=== PATIENT | female | born 1955 | race Caucasian/White ===

== ENCOUNTER 2017-10-30 08:04 | Emergency (ER) | payer OTHER ==
[~2017-10-30] VITALS: Ht 162.6 cm; Wt 103.0 kg
[~2017-10-30 08:04] MED LIST: ASPI81TA82 PO; CITA20TA4 PO; ESTR2MIS PO; GABA100C4 PO; HYDR12.56 PO; METR-1 PO; MULT-7 PO; PRAV20TA67 PO; PRIL20CA PO; PRIN5TAB PO; TOPR25TA2 PO
[2017-10-30 08:10] VITALS: BP 122/71; PULSE 77; RESP 20; TEMP 97.5; O2SAT 97
[2017-10-30 08:23] VITALS: BP 129/76; PULSE 80; RESP 18; O2SAT 98
[2017-10-30] MEDS ORDERED: MULTTAB67 PO (08:31)
[2017-10-30] MEDS ORDERED: HYDR12.57 PO (08:31)
[2017-10-30] MEDS ORDERED: CALC1TAB87 PO (08:31)
[2017-10-30] MEDS ORDERED: LISI-519 PO (08:31)
[2017-10-30] MEDS ORDERED: MILK300C (08:31)
[2017-10-30] MEDS ORDERED: GABA100C4 PO (08:31)
[2017-10-30] MEDS ORDERED: COLA100C5 PO (08:31)
[2017-10-30] MEDS ORDERED: OMEP20TA93 PO (08:31)
[2017-10-30] MEDS ORDERED: LEVO75TA3 PO (08:31)
[2017-10-30] MEDS ORDERED: CHOL5000 PO (08:31)
[2017-10-30] MEDS ORDERED: CARV12.5 PO (08:31)
[2017-10-30] MEDS ORDERED: ROSU5 PO (08:31)
[2017-10-30] MEDS ORDERED: LORA0.5T PO (08:31)
[2017-10-30] MEDS ORDERED: ASPI81CH6 CHEW (08:31)
--- NOTE | 2017-10-30 08:42 | PD ---
HPI Chief Complaint: Musculoskeletal Complaint Time Seen by Provider: 08:38 Travel History International Travel<30 days: No Contact w/Intl Traveler<30days: No Traveled to known affect area: No History of Present Illness HPI 62-year-old female patient with history of hypertension, cardiac dysrhythmia status post defibrillator placement, presents to the ER today because she has had 1 week history of right-sided shoulder pains as now spreading to the rest of her chest. She states is currently an 8 out of 10. She states it hurts with movement of her right arm. She does not remember any injuries, just started on its own. She thinks that it is a muscle pain and came in here because she could not stand anymore. She denies any coughing, fevers, or any other issues. Modifying Factors: Worse with movement Associated Signs & Symptoms: Right shoulder pain radiating up her neck and her chest Risk Factors: Elderly, cardiac history PFSH Past Medical History Arthritis: Yes (oa, ddd) Cardiac Catheterization: Yes Congestive Heart Failure: Yes Cirrhosis: Yes Diminished Hearing: Yes Fibromyalgia: Yes Medical other: Yes (FATTY LIVER) Tetanus Vaccination: Unknown Influenza Vaccination: Yes : 0 Para: 1 : 1 Past Surgical History Abdominal Surgery: Yes (Hernia repair, ruptured bowl) Pacemaker: Yes (Defib) Other Surgery: Yes (Ingrown toe nails bilat) Social History Alcohol Use: Yes (x1 4 week) Tobacco Use: No Substance Use: No Allergies-Medications (Allergen,Severity, Reaction): Coded Allergies: penicillin G (Unverified Allergy, Severe, Rash, 10/30/17) moxifloxacin (Unverified Allergy, Mild, Joint Pain, 10/30/17) codeine (Unverified Allergy, Unknown, Nausea/Vomiting, 10/30/17) pantoprazole (Unverified Allergy, Unknown, Rash, 10/30/17) Uncoded Allergies: ivp dye (Allergy, Intermediate, red itchy, 10/30/17) Reported Meds & Prescriptions Reported Meds & Active Scripts Active Reported Milk Thistle 150 Mg Cap Colace (Docusate Sodium) 100 Mg Capsule 100 Mg PO DAILY Vitamin D3 (Cholecalciferol) 5,000 Unit Cap 5,000 Units PO DAILY Calcium 600 with Vitamin D (Calcium Carbonate-Cholecalciferol) 600-400 mg-Unit Tab 1 Tab PO DAILY Multiple Vitamin 1 Tab 1 Tab PO DAILY Hydrochlorothiazide 12.5 Mg Cap 12.5 Mg PO DAILY Levothyroxine (Levothyroxine Sodium) 75 Mcg Tab 75 Mcg PO DAILY Lisinopril 5 Mg Tab 5 Mg PO DAILY Coreg (Carvedilol) 12.5 Mg Tab 12.5 Mg PO BID Omeprazole 20 Mg Tab 20 Mg PO DAILY Lorazepam 0.5 Mg Tab 0.5 Mg PO Q6H PRN Crestor (Rosuvastatin Calcium) 5 Mg Tab 5 Mg PO HS Gabapentin 100 Mg Cap 200 Mg PO HS Aspirin Low Dose (Aspirin) 81 Mg Chew 81 Mg CHEW DAILY Review of Systems Except as stated in HPI: all other systems reviewed are Neg Physical Exam Narrative GENERAL: Well-developed elderly female patient currently in mild distress. Awake and oriented 3. Appears anxious. SKIN: Focused skin assessment warm/dry. No obvious rashes. HEAD: Atraumatic. Normocephalic. EYES: Pupils equal and round. No scleral icterus. No injection or drainage. ENT: No nasal bleeding or discharge. Mucous membranes pink and moist. NECK: Trachea midline. No JVD. Supple. CARDIOVASCULAR: Regular rate and rhythm. No murmur appreciated. RESPIRATORY: No accessory muscle use. Clear to auscultation. Breath sounds equal bilaterally. GASTROINTESTINAL: Abdomen soft, non-tender, nondistended. Hepatic and splenic margins not palpable. MUSCULOSKELETAL: No obvious deformities. No clubbing. No cyanosis. No edema. Mildly tender to palpation of the right shoulder area, generalized, no point tenderness. NEUROLOGICAL: Awake and alert. No obvious cranial nerve deficits. Motor grossly within normal limits. Normal speech. PSYCHIATRIC: Anxious mood and affect; insight and judgment normal. Data Data Last Documented VS Vital Signs Date Time Temp Pulse Resp B/P (MAP) Pulse Ox O2 Delivery O2 Flow Rate FiO2 10/30/17 09:02 80 18 129/76 (93) 98 Room Air 134/88 (103) 10/30/17 08:10 97.5 Orders Orders Electrocardiogram (10/30/17 08:38) Basic Metabolic Panel (Bmp) (10/30/17 08:38) Ckmb (Isoenzyme) Profile (10/30/17 08:38) Complete Blood Count With Diff (10/30/17 08:38) Magnesium (Mg) (10/30/17 08:38) Prothrombin Time / Inr (Pt) (10/30/17 08:38) Act Partial Throm Time (Ptt) (10/30/17 08:38) Troponin I (10/30/17 08:38) Ecg Monitoring (10/30/17 08:38) Bilateral Bp Monitoring (10/30/17 08:38) Iv Access Insert/Monitor (10/30/17 08:38) Oximetry (10/30/17 08:38) Oxygen Administration (10/30/17 08:38) Morphine Inj (Morphine Inj) (10/30/17 08:45) Sodium Chloride 0.9% Flush (Ns Flush) (10/30/17 08:45) Sodium Chlorid 0.9% 500 Ml Inj (Ns 500 M (10/30/17 08:45) Chest, Pa & Lat (10/30/17 08:38) Ondansetron Inj (Zofran Inj) (10/30/17 08:45) Shoulder, Complete (>2vws) (10/30/17 08:38) Labs Laboratory Tests Test 10/30/17 08:50 White Blood Count 7.0 TH/MM3 Red Blood Count 4.60 MIL/MM3 Hemoglobin 13.9 GM/DL Hematocrit 40.2 % Mean Corpuscular Volume 87.4 FL Mean Corpuscular Hemoglobin 30.2 PG Mean Corpuscular Hemoglobin Concent 34.6 % Red Cell Distribution Width 13.6 % Platelet Count 91 TH/MM3 Mean Platelet Volume 9.6 FL Neutrophils (%) (Auto) 66.3 % Lymphocytes (%) (Auto) 26.6 % Monocytes (%) (Auto) 3.0 % Eosinophils (%) (Auto) 3.6 % Basophils (%) (Auto) 0.5 % Neutrophils # (Auto) 4.6 TH/MM3 Lymphocytes # (Auto) 1.9 TH/MM3 Monocytes # (Auto) 0.2 TH/MM3 Eosinophils # (Auto) 0.2 TH/MM3 Basophils # (Auto) 0.0 TH/MM3 CBC Comment AUTO DIFF Differential Comment AUTO DIFF CONFIRMED Platelet Estimate LOW Platelet Morphology Comment NORMAL Prothrombin Time 10.0 SEC Prothromb Time International Ratio 1.0 RATIO Activated Partial Thromboplast Time 24.3 SEC Blood Urea Nitrogen 12 MG/DL Creatinine 0.93 MG/DL Random Glucose 131 MG/DL Calcium Level 9.5 MG/DL Magnesium Level 2.0 MG/DL Sodium Level 141 MEQ/L Potassium Level 3.4 MEQ/L Chloride Level 101 MEQ/L Carbon Dioxide Level 29.8 MEQ/L Anion Gap 10 MEQ/L Estimat Glomerular Filtration Rate 61 ML/MIN Total Creatine Kinase 89 U/L Troponin I LESS THAN 0.02 NG/ML MDM Medical Decision Making Medical Screen Exam Complete: Yes Emergency Medical Condition: Yes Medical Record Reviewed: Yes Interpretation(s) Laboratory Tests Test 10/30/17 08:50 Platelet Count 91 TH/MM3 (150-450) Platelet Estimate LOW (NORMAL) Random Glucose 131 MG/DL (74-106) Potassium Level 3.4 MEQ/L (3.5-5.1) Estimat Glomerular Filtration Rate 61 ML/MIN (>89) Troponin I LESS THAN 0.02 NG/ML Last 24 hours Impressions Shoulder X-Ray 10/30/17837 Signed Impressions: Service Date/Time: Monday, October 30, 2017 08:53 - CONCLUSION: ADC degenerative changes otherwise negative. Doug Prather MD FACR Chest X-Ray 10/30/17837 Signed Impressions: Service Date/Time: Monday, October 30, 2017 08:51 - CONCLUSION: 1. No acute cardiopulmonary findings. Romario Prather MD Differential Diagnosis Muscle spasms versus arthritis versus dysrhythmias versus ACS Narrative Course Chest x-ray did not show any signs of acute processes. Right shoulder did show some ADC joint arthritis. At this point, I suspect it is her arthritis is causing the pain. It is reproducible with arm movements. However, cardiac enzymes was fairly unremarkable and considering her cardiac history, I have talked to her regarding chest pain center admission. Patient tells me that Dr. Clemons, her formulation technician had just done a stress test on her earlier in the year and it was fine, she has had catheterizations and is always been clear. At this point, she states that she does not want to stay and does not think is her heart. I will release her with close follow-up to primary care physician, formulation technician, and give her pain control. Return for worsening in symptoms as necessary. The plan has been discussed with her and she states understanding. Diagnosis Primary Impression: Right shoulder pain Med/Other Pt SpecificInfo: Prescription(s) given Scripts Tramadol (Tramadol) 50 Mg Tab 50 MG PO Q6H Y for PAIN, #15 TAB 0 Refills Prov: Shannon Artis MD 10/30/17 Disposition: 01 DISCHARGE HOME Condition: Stable Shannon Artis MD October 30, 2017 08:42
[2017-10-30] MEDS ORDERED: SODIUM CHLORID 0.9% 500 ML INJ 500 ML IV ONE (08:45)
[2017-10-30] MEDS ORDERED: MORPHINE SULFATE 4 MG/ML INJ IV PUSH ONE (08:45)
[2017-10-30] MEDS ORDERED: SODIUM CHLORIDE 0.9% FLUSH 10 ML FLUSH IVF PRN (08:45)
[2017-10-30] MEDS ORDERED: ONDANSETRON HCL 4 MG/2 ML VIAL IV PUSH ONE (08:45)
[2017-10-30 08:48] VITALS: BP 129/76; PULSE 80; RESP 18; O2SAT 98
[2017-10-30 09:02] VITALS: BP_SYST 129; BP_SYST 134; BP_DIAS 76; BP_DIAS 88; PULSE 80; RESP 18; O2SAT 98
--- NOTE | 2017-10-30 09:03 | RADRPT ---
EXAM DATE/TIME: 10/30/2017 08:51 [facility] COMPARISON: No previous studies available for comparison. INDICATIONS : Complains of right shoulder and chest pain. MEDICAL HISTORY : Congestive heart failure. SURGICAL HISTORY : Pacemaker. ENCOUNTER: Initial ACUITY: 1 week PAIN SCORE: 10/10 LOCATION: Right chest FINDINGS: The heart is normal in size. The lungs are clear. The mediastinal contours within normal limits. Note is made of a transvenous pacer. The visualized bony structures are grossly intact. CONCLUSION: 1. No acute cardiopulmonary findings. Romario Prather MD on October 30, 2017 at 9:00 Board Certified Radiologist. This report was verified electronically.
--- NOTE | 2017-10-30 09:12 | RADRPT ---
EXAM DATE/TIME: 10/30/2017 08:53 [facility] COMPARISON: No previous studies available for comparison. INDICATIONS : Right shoulder pain. MEDICAL HISTORY : Congestive heart failure. SURGICAL HISTORY : Pacemaker. ENCOUNTER: Initial ACUITY: 1 week PAIN SCORE: 10/10 LOCATION: Right shoulder FINDINGS: Multiple view examination of the right shoulder demonstrates no evidence of fracture or dislocation. Mild degenerative changes AC joint. Glenoid intact. Lung apex clear. CONCLUSION: ADC degenerative changes otherwise negative. Doug Prather MD FACR on October 30, 2017 at 9:09 Board Certified Radiologist. This report was verified electronically.
[2017-10-30 09:25] LABS: AUTOMATED NEUTROPHIL # 4.6 TH/MM3 (1.8-7.7); BASOPHIL % 0.5 % (0.0-2.0); EOSINOPHIL # 0.2 TH/MM3 (0-0.4); EOSINOPHIL % 3.6 % (0.0-4.0); HEMATOCRIT 40.2 % (35.0-46.0); HEMOGLOBIN 13.9 GM/DL (11.6-15.3); LYMPH % 26.6 % (9.0-44.0); LYMPHOCYTE # 1.9 TH/MM3 (1.0-4.8); MEAN CELL VOLUME 87.4 FL (80.0-100.0); MEAN CORPUSCULAR HEMOGLOBIN 30.2 PG (27.0-34.0); MEAN CORPUSCULAR HGB CONC 34.6 % (32.0-36.0); MEAN PLATELET VOLUME 9.6 FL (7.0-11.0); MONOCYTE # 0.2 TH/MM3 (0-0.9); NEUT % 66.3 % (16.0-70.0); PLATELET COUNT 91 TH/MM3 (150-450); RED CELL DISTRIBUTION WIDTH 13.6 % (11.6-17.2)
[2017-10-30 09:38] LABS: BICARBONATE 29.8 MEQ/L (21.0-32.0); BLOOD UREA NITROGEN 12 MG/DL (7-18); CALCIUM 9.5 MG/DL (8.5-10.1); CHLORIDE 101 MEQ/L (98-107); CREATININE 0.93 MG/DL (0.50-1.00); GLOMERULAR FILTRATION RATE 61 ML/MIN (>89); GLUCOSE,RANDOM 131 MG/DL (74-106); SODIUM (NA) 141 MEQ/L (136-145)
[2017-10-30 09:42] LABS: TROPONIN I LESS THAN 0.02 NG/ML (0.02-0.05)
[2017-10-30] MEDS ORDERED: TRAM50TA PO (10:29)
--- NOTE | 2017-10-30 16:56 | EKG ---
Date Performed: 10/30/2017 Time Performed: 08:20:53 PTAGE: 62 years EKG: Sinus rhythm NORMAL ECG NO PREVIOUS TRACING DOCTOR: Kevin Sosa Interpretating Date/Time 10/30/2017 16:26:12
== END 2017-10-30 11:06 | disposition home or self-care (01) ==
LOC: NEPC 08:04
DX: M25.511 Pain in right shoulder (principal); I10 Essential (primary) hypertension; I49.9 Cardiac arrhythmia, unspecified; M19.90 Unspecified osteoarthritis, unspecified site; I50.9 Heart failure, unspecified; K74.60 Unspecified cirrhosis of liver; M79.7 Fibromyalgia; K76.0 Fatty (change of) liver, not elsewhere classified; Z79.82 Long term (current) use of aspirin
CPT/HCPCS: 71046; 73030; 80048; 82550; 83735; 84484; 85025; 85610; 85730; 93005; 96361; 96374; 96375; 99285; J2270; J2405; J7040

== ENCOUNTER 2018-01-15 12:48 | Inpatient (IN) ==
[2018-01-15 15:14] LABS: Hematocrit 31.4 % (35.0-46.0); Hemoglobin 10.8 gm/dL (11.6-15.3); Mean Corpuscular HGB Conc 34.4 % (32.0-36.0); Mean Corpuscular Hemoglobin 30.6 pg (27.0-34.0); Mean Platelet Volume 8.8 fL (7.0-11.0); Red Blood Count 3.53 mil/mm3 (4.00-5.30); Red Cell Distribution Width 15.7 % (11.6-17.2); White Blood Count 9.6 th/mm3 (4.0-11.0)
[2018-01-15 15:37] LABS: Alanine Aminotransferase 81 U/L (10-53); Albumin 3.6 g/dL (3.4-5.0); Anion Gap 12 meq/L (5-15); Aspartate Aminotransferase 68 U/L (15-37); Blood Urea Nitrogen 11 mg/dL (7-18); Calcium 9.6 mg/dL (8.5-10.1); Carbon Dioxide 23.9 meq/L (21.0-32.0); Chloride 104 meq/L (98-107); Glomerular Filtration Rate 53 mL/min (>89); Glucose,Random 165 mg/dL (74-106); Lactate Dehydrogenase 423 U/L (84-246); Potassium 3.5 meq/L (3.5-5.1); Sodium 140 meq/L (136-145); Uric Acid 9.4 mg/dl (2.6-6.0)
[2018-01-15 15:38] LABS: Alkaline Phosphatase 73 U/L (45-117); Total Protein 7.4 g/dL (6.4-8.2)
[2018-01-15] MEDS ORDERED: Temazepam 15 MG Capsule PO PRN (16:15)
--- NOTE | 2018-01-15 16:19 | ED ---
HPI General Chief complaint: Recheck/Abnormal Lab/Rx Stated complaint: dr sent Time Seen by Provider: 01/15/18 14:10 History of Present Illness HPI narrative: This is a 62-year-old female with a history of chronic idiopathic thrombocytopenia, who is been worked up for leukemia by her oncologist/lump receiver Dr. Kvng Lazcano. Patient apparently has been having serial CBCs which have shown a steady decline in her platelet count. Dr. Kvng Lazcano saw her today and sent her here for admission because her platelets had dropped to 21,000. The patient reports that he was considering both a LL versus CLL. She denies any fevers, chills. She does report weakness. There were no other complaints at the time of my examination. Related Data Allergies Allergy/AdvReac Type Severity Reaction Status Date / Time penicillin G Allergy Severe Rash Unverified 10/30/17 08:10 moxifloxacin Allergy Mild Joint Pain Unverified 10/30/17 08:10 codeine Allergy Unknown Nausea/Vomi Unverified 10/30/17 08:10 ting pantoprazole Allergy Unknown Rash Unverified 10/30/17 08:10 ivp dye Allergy Intermediate red itchy Uncoded 10/30/17 08:10 Review of Systems Except as stated in HPI: all other systems reviewed are negative Constitutional Denies body ache(s), Denies chills and Denies fever(s) Eyes Denies blurry vision and Denies diplopia ENT Denies bleeding gums and Denies epistaxis Cardiovascular Denies chest pain and Denies chest pain at rest Respiratory Denies hemoptysis, Denies pain on inspiration and Reports other (Chronic shortness of breath) Gastrointestinal Denies hematochezia and Denies hematemesis Genitourinary Denies hematuria and Denies dysuria Musculoskeletal Reports system reviewed and no additional complaints, except as docu Integumentary/Breasts Reports system reviewed and no additional complaints, except as docu Neurologic Denies dizziness, Denies headache(s) and Reports weakness (Generalized) Endocrine Reports system reviewed and no additional complaints, except as docu Hematologic/Lymphatic Denies as per HPI, Denies easy bleeding and Denies lymphadenopathy PMFSH Medical History Medical History Cardiomyopathy (Acute) Chronic ITP (idiopathic thrombocytopenia) (Acute) Clostridium difficile infection (Acute) Degenerative disc disease (Acute) Fatty liver (Acute) Fibromyalgia (Acute) Ganglion cyst (Acute) Hiatal hernia (Acute) Hypertension (Acute) Ingrown toenail (Acute) Keratosis (Acute) Hastings's neuroma (Acute) Normal colonoscopy (Acute) Osteoarthritis (Acute) Sickle cell trait (Acute) TMJ arthritis (Acute) Surgical History Surgical History AICD (automatic cardioverter/defibrillator) present (Acute) History of cardiac cath (Acute) S/p bilateral blepharoplasty (Acute) Social History Social History Substance History: No History of Abuse Second Hand Smoke Exposure: No Smoking Status: Former smoker How Often Do You Have a Drink Containing Alcohol: Never Recent Travel in [facility] within the Last 8 Weeks: No Recent Out of Country Travel within the Last 8 Weeks: No Immunization History Tetanus Immunization: >5 Years Hx Influenza Vaccine This Season: Yes Exam Narrative Exam Narrative: GENERAL: Well-developed well-nourished female in no acute respiratory distress. SKIN: Focused skin assessment warm/dry. HEAD: Atraumatic. Normocephalic. EYES: No scleral icterus. No injection or drainage. ENT: No nasal bleeding or discharge. Mucous membranes pink and moist. NECK: Trachea midline. Supple. CARDIOVASCULAR: Regular rate and rhythm. No murmur appreciated. RESPIRATORY: No accessory muscle use. Clear to auscultation. Breath sounds equal bilaterally. GASTROINTESTINAL: Abdomen soft, non-tender, nondistended. MUSCULOSKELETAL: No obvious deformities. No clubbing. No cyanosis. No edema. NEUROLOGICAL: Awake and alert. No obvious cranial nerve deficits. Motor grossly within normal limits. Normal speech. PSYCHIATRIC: Appropriate mood and affect; insight and judgment normal. Course Initial Documented Vital Signs Temperature 98.9 F 01/15/18 12:54 Pulse Rate 89 01/15/18 12:54 Respiratory Rate 16 01/15/18 12:54 Blood Pressure 122/74 01/15/18 12:54 Pulse Oximetry 99 01/15/18 12:54 Last Documented Vital Signs Temperature 98.9 F 01/15/18 12:54 Pulse Rate 90 01/15/18 15:10 Respiratory Rate 16 01/15/18 15:10 Blood Pressure 137/74 01/15/18 15:10 Pulse Oximetry 97 01/15/18 15:10 Medical Decision Making MDM Narrative Medical decision making narrative: This is a 62-year-old female sent here by her lump receiver for admission for probable ALL versus CLL. I spoke with Dr. Kvng Lazcano on the phone and he reports he received confirmation that it is a LL. He requested I order a CBC and CMP including LDH and uric acid. This is been ordered. Please will be admitted to the medicine service. Case was [facility]. Differential Diagnosis Differential Diagnosis: ALL versus CLL versus pancytopenia versus metabolic derangement. Lab Data Result diagrams: 01/15/18 15:00 01/15/18 15:00 Lab Results 01/15/18 Range/Units 15:00 Sodium 140 (136-145) meq/L Potassium 3.5 (3.5-5.1) meq/L Chloride 104 (98-107) meq/L Carbon Dioxide 23.9 (21.0-32.0) meq/L Anion Gap 12 (5-15) meq/L BUN 11 (7-18) mg/dL Creatinine 1.05 H (0.50-1.00) mg/dL Estimated GFR 53 L (>89) mL/min Random Glucose 165 H (74-106) mg/dL Uric Acid 9.4 H (2.6-6.0) mg/dl Calcium 9.6 (8.5-10.1) mg/dL Total Bilirubin 1.4 H (0.2-1.0) mg/dL AST 68 H (15-37) U/L ALT 81 H (10-53) U/L Alkaline Phosphatase 73 (45-117) U/L Lactate Dehydrogenase 423 H (84-246) U/L Total Protein 7.4 (6.4-8.2) g/dL Albumin 3.6 (3.4-5.0) g/dL Discharge Plan Discharge Disposition Patient Disposition: 30 Still Patient Discharge Details Diagnosis: ALL (acute lymphocytic leukemia), Pulmonary embolus Physicians Team ED Provider: Dirk Lam Primary Care Provider: Primary Care Ginna Menchaca Attending Provider: Amaury Oropeza Discharge Interventions Interventions: Vital Signs Last Done: 01/15/18 15:10 Status ED Status: Admitted Patient
[2018-01-15 16:29] LABS: Platelet Count 17 th/mm3 (150-450)
[2018-01-15 17:20] LABS: Eosinophils 1 % (0-4); Lymphocytes 58 % (9-44); Metamyelocytes 3 % (0-1); Monocytes 3 % (0-8); Myelocytes 1 % (0-0); Tallied Nucleated RBC 2 (0-0)
[2018-01-15 17:21] LABS: Tear Drop Cells 1+
[2018-01-15 17:22] LABS: Platelet Estimate Rare (Normal); Platelet Morphology Normal (Normal)
--- NOTE | 2018-01-15 17:28 | P.HPIM ---
History of Present Illness Primary Care Physician: No Primary Care Physician Chief Complaint: Abnormal results History of Present Illness: The patient is a 62-year-old female with past medical history of ITP and CHF who is presenting to the hospital upon request of her oncologist. The patient states that she has been following with Dr. Lazcano and she saw him in the office today and she recommended that she come to the hospital for further evaluation and treatment. The patient says that recently she has been tired, short of breath and has had decreased appetite. She believes she might of had some weight loss but nothing significant. She says lately when she eats the food goes right through her and she has diarrhea. She denies any fevers, she denies any edema. She denies any chest pain. She says on November 25 she had chest pain and went to the hospital and was found to have blood clots in her lungs. She says they have been found her to have abnormal blood counts and was not started on anticoagulation because she was told her blood was thin enough and her body would take care of the blood clots. The patient says she was currently being worked up between a chronic and acute type of cancer. Inpatient Certification: I certify that the inpatient services were ordered in accordance with Medicare regulations governing the order. This includes certification that hospital inpatient services are reasonable and necessary and in the case of services not specified as inpatient-only under 42 CFR 419.22(n), that they are appropriately provided as inpatient services in accordance to with the 2-midnight benchmark under 43 CFR 412.3(e) Estimated Total Length of Stay (Days): 2 Plans for Post Hospital Care: Not yet determined Review of Systems All other systems reviewed negative except as stated in HPI [facility] - History History Provided By: Patient, Significant Other - Medical History Medical History: Medical History (Last Updated 01/15/18 @ 17:25 by Amaury Oropeza DO) CHF (congestive heart failure) Cardiomyopathy Chronic ITP (idiopathic thrombocytopenia) Clostridium difficile infection Degenerative disc disease Fatty liver Fibromyalgia Ganglion cyst Hiatal hernia Hypertension Ingrown toenail Keratosis Hastings's neuroma Normal colonoscopy Osteoarthritis Sickle cell trait TMJ arthritis - Surgical History Surgical History: Surgical History (Last Updated 01/15/18 @ 15:22 by Georgiana Sorensen) AICD (automatic cardioverter/defibrillator) present History of cardiac cath S/p bilateral blepharoplasty - Tobacco History Second Hand Smoke Exposure: No Tobacco Use In Past 30 Days: No Smoking Status: Former smoker - Alcohol History How Often Do You Have a Drink Containing Alcohol: Never - Substance Use History Substance History: No History of Abuse - Substance Use Type Marijuana Frequency: monthly - Travel History Recent Travel in the [place] Within the Last 8 Weeks: No Recent Travel Out of the Country Within the Last 8 Weeks: No - Immunization History Tetanus Immunization: >5 Years Hx Influenza Vaccine This Season: Yes Medications and Allergies Active Medications: Active Medications Acetaminophen (Tylenol) 650 mg PO Q4H PRN PRN Reason: Temp > 100.4 Metoclopramide HCl (Reglan Inj) 5 mg IV.PUSH Q6HR PRN; Protocol PRN Reason: NAUSEA OR VOMITING Senna/Docusate Sodium (Nataliia-Colace) 1 tab PO BID LEXA Sodium Chloride (Ns Flush) 2 ml IV.FLUSH PRN PRN PRN Reason: FLUSH AFTER USING IV ACCESS Temazepam (Restoril) 15 mg PO HS PRN PRN Reason: INSOMNIA Allergies Allergy/AdvReac Type Severity Reaction Status Date / Time penicillin G Allergy Severe Rash Unverified 10/30/17 08:10 moxifloxacin Allergy Mild Joint Pain Unverified 10/30/17 08:10 codeine Allergy Unknown Nausea/Vomi Unverified 10/30/17 08:10 ting pantoprazole Allergy Unknown Rash Unverified 10/30/17 08:10 ivp dye Allergy Intermediate red itchy Uncoded 10/30/17 08:10 Home Medications Medication Instructions Recorded Confirmed Type aspirin 81 mg PO DAILY 01/15/18 01/15/18 History biotin 5,000 mcg SUBLINGUAL DAILY 01/15/18 01/15/18 History calcium carbonate 600 mg PO BID 01/15/18 01/15/18 History carvedilol [Coreg] 12.5 mg PO BID 01/15/18 01/15/18 History cholecalciferol (vitamin D3) 5,000 unit PO DAILY 01/15/18 01/15/18 History [Vitamin D3] cyclobenzaprine 10 mg PO TID PRN 01/15/18 01/15/18 History docusate sodium [Colace] 100 mg PO DAILY 01/15/18 01/15/18 History fluticasone [Flonase Allergy 1 spray INTRANASAL DAILY PRN 01/15/18 01/15/18 History Relief] gabapentin 100 mg PO DAILY 01/15/18 01/15/18 History hydrochlorothiazide 12.5 mg PO DAILY 01/15/18 01/15/18 History levothyroxine 25 mcg PO DAILY 01/15/18 01/15/18 History lisinopril 5 mg PO DAILY 01/15/18 01/15/18 History loratadine [Claritin] 10 mg PO DAILY 01/15/18 01/15/18 History lorazepam [Ativan] 0.5 mg PO DAILY PRN 01/15/18 01/15/18 History milk thistle 1,000 mg PO DAILY 01/15/18 01/15/18 History multivitamin 1 tab PO DAILY 01/15/18 01/15/18 History omeprazole 20 mg PO DAILY 01/15/18 01/15/18 History rosuvastatin [Crestor] 5 mg PO DAILY 01/15/18 01/15/18 History valacyclovir 1 gm PO DAILY PRN 01/15/18 01/15/18 History Exam Vital signs: Vital Signs 01/15/18 12:54 01/15/18 15:10 01/15/18 16:54 Temperature 98.9 F 98.7 F Pulse Rate 89 90 99 H Respiratory Rate 16 16 20 Blood Pressure 122/74 137/74 145/68 H Pulse Oximetry 99 97 99 Intake & Output 01/14/18 01/15/18 01/15/18 18:59 06:59 18:59 Weight 98.883 kg Narrative: GENERAL: Well-developed well-nourished female in no acute distress. SKIN: Focused skin assessment warm/dry. HEAD: Atraumatic. Normocephalic. EYES: No scleral icterus. No injection or drainage. ENT: No nasal bleeding or discharge. Mucous membranes pink and moist. NECK: Trachea midline. Supple. CARDIOVASCULAR: Regular rate and rhythm. No murmur appreciated. RESPIRATORY: No accessory muscle use. Clear to auscultation. Breath sounds equal bilaterally. GASTROINTESTINAL: Abdomen soft, non-tender, nondistended. MUSCULOSKELETAL: No obvious deformities. No clubbing. No cyanosis. No edema. NEUROLOGICAL: Awake and alert. No obvious cranial nerve deficits. Motor grossly within normal limits. Normal speech. PSYCHIATRIC: Appropriate mood and affect; insight and judgment normal. Results - Labs CBC & Chem 7: 01/15/18 15:00 01/15/18 15:00 Labs: Short CBC 01/15/18 Range/Units 15:00 WBC 9.6 (4.0-11.0) th/mm3 Hgb 10.8 L (11.6-15.3) gm/dL Hct 31.4 L (35.0-46.0) % Plt Count 17 L* (150-450) th/mm3 BMP 01/15/18 15:00 Sodium 140 Potassium 3.5 Chloride 104 Carbon Dioxide 23.9 BUN 11 Creatinine 1.05 H Calcium 9.6 Liver Function 01/15/18 Range/Units 15:00 Total Bilirubin 1.4 H (0.2-1.0) mg/dL AST 68 H (15-37) U/L ALT 81 H (10-53) U/L Alkaline Phosphatase 73 (45-117) U/L Albumin 3.6 (3.4-5.0) g/dL Caprini VTE Risk Assessment Caprini VTE Risk Assessment: Moderate/High Risk (score >= 2) Caprini Risk Assessment Model: Point Value = 1 Point Value = 2 Point Value = 3 Point Value = 5 Age 41-60 Minor surgery BMI > 25 kg/m2 Swollen legs Varicose veins or History of unexplained or recurrent spontaneous Oral contraceptives or hormone replacement Sepsis (< 1 month) Serious lung disease, including pneumonia (< 1 month) Abnormal pulmonary function Acute myocardial infarction Congestive heart failure (< 1 month) History of inflammatory bowel disease Medical patient at bed rest Age 61-74 Arthroscopic surgery Major open surgery (> 45 min) Laparoscopic surgery (> 45 min) Malignancy Confined to bed (> 72 hours) Immobilizing plaster cast Central venous access Age >= 75 History of VTE Family history of VTE Factor V Leiden Prothrombin [id number] Lupus anticoagulant Anticardiolipin antibodies Elevated serum homocysteine Heparin-induced thrombocytopenia Other congenital or acquired thrombophilia Stroke (< 1 month) Elective arthroplasty Hip, pelvis, or leg fracture Acute spinal cord injury (< 1 month) Prophylaxis Regimen: Total Risk Factor Score Risk Level Prophylaxis Regimen 0-1 Low Early ambulation 2 Moderate Order ONE of the following: *Sequential Compression Device (SCD) *Heparin 5000 units SQ BID 3-4 Higher Order ONE of the following medications: *Heparin 5000 units SQ TID *Enoxaparin/Lovenox 40 mg SQ daily (WT < 150 kg, CrCl > 30 mL/min) *Enoxaparin/Lovenox 30 mg SQ daily (WT < 150 kg, CrCl > 10-29 mL/min) *Enoxaparin/Lovenox 30 mg SQ BID (WT < 150 kg, CrCl > 30 mL/min) AND/OR *Sequential Compression Device (SCD) 5 or more Highest Order ONE of the following medications: *Heparin 5000 units SQ TID (Preferred with Epidurals) *Enoxaparin/Lovenox 40 mg SQ daily (WT < 150 kg, CrCl > 30 mL/min) *Enoxaparin/Lovenox 30 mg SQ daily (WT < 150 kg, CrCl > 10-29 mL/min) *Enoxaparin/Lovenox 30 mg SQ BID (WT < 150 kg, CrCl > 30 mL/min) AND *Sequential Compression Device (SCD) Assessment and Plan - Plan ALL/ ITP The pt was being worked up by Dr. 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 PLT count is currently 17. The pt also has a history of ITP. She has not had any recent bleeding. - oncology consult placed. - follow CBC and transfuse per oncology. - hold ASA. PE Recently diagnosed. Not on anticoagulation s/t thrombocytopenia. She denies any chest pain. - oxygen and nebs as needed. - incentive spirometry. Fatigue/ Dizziness S/t above. - PT if needed. Pt is ambulatory at this time. CHF Chronic, systolic. S/p AICD placement. Pt appears euvolemic. - resume home regimen. HTN Blood pressure relatively controlled at this time. - resume home regimen. - clonidine as needed. PPx: Contraindicated s/t thrombocytopenia H&P: Quality - VTE Deep Vein Thrombosis/Pulmonary Embolism Present on Admission: No
[2018-01-15] MEDS ORDERED: LORazepam 0.5 MG Tablet PO PRN (17:35)
[2018-01-15] MEDS ORDERED: Sodium Chlor 0.9% Inj 250 ML IV.SIG SCH (20:00)
--- NOTE | 2018-01-15 20:19 | MB ---
cc: Kvng Lazcano MD, Boon Y MD DATE: 01/15/2018 ATTENDING PHYSICIAN: Dr. Oropeza REASON FOR CONSULTATION: Hematology is consulted to render an opinion regarding a patient with acute leukemia. HISTORY OF PRESENT ILLNESS: The patient is a very pleasant 62-year-old female first admitted at [facility] in [facility] a few weeks ago with chest pain. She was found to have small bilateral pulmonary emboli in the distal branch. During hospital stay, she was noted to have thrombocytopenia, platelet count of 34,000. She did not start anticoagulation due to her low platelet count. Her chest pain spontaneously resolved. She was started on prednisone and her platelet count normalized after a few days. We started to taper her off the prednisone last week. Her platelet count started trending down and her white blood cell count started trending up and the differential showing myelocyte and metamyelocyte as well as a few blast cells. When I saw her in clinic today, her platelet count had trended down to 22,000. White blood cell count was up to 14,000. I have sent peripheral blood flow cytometry as well as BCR/ABL. I received a call from pathology and preliminary result showed acute lymphoblastic leukemia. BCR/ABL is still pending. The patient has been having increased fatigue and weakness. She also has dizziness. She had been having loose stool. She denies any fever or chills. She denies any chest pressure or palpitation. She denies any cough. She has no nausea or vomiting. Denies any abdominal pain. Denies any bleeding or bruising. Denies any headache or visual changes. PAST MEDICAL HISTORY: 1. Congestive heart failure 2. Hepatic steatosis. 3. Hypothyroidism. 4. Obstructive sleep apnea. 5. Bilateral small distal branch pulmonary embolism, 6. Hypertension, 7. Hyperlipidemia, 8. Gastritis, 9. Ruptured bowel in 2006. PAST SURGICAL HISTORY: 1. AICD placement. 2. Partial colon resection in 2006 for ruptured bowel. FAMILY HISTORY: Has 2 sisters and 1 daughter. They are all in [place]. No cancer or leukemia history in the family. SOCIAL HISTORY: Drink four wine a day, smoked a pack a day for 45 years, quit in 2010. ALLERGIES: PENICILLIN, MOXIFLOXACIN, CODEINE, PANTOPRAZOLE, IV DYE CURRENT MEDICATIONS: 1. Lipitor. 2. Coreg. 3. Flexeril. 4. Gabapentin. 5. Hydrochlorothiazide. 6. Levothyroxine. 7. Lisinopril. 8. Protonix. 9. Nataliia-Colace. REVIEW OF SYSTEMS: CONSTITUTIONAL: As above. EYES: Negative. ENT: Negative. CARDIOVASCULAR: Denied chest pressure or palpitation. LUNGS: Denied shortness of breath or cough. GASTROINTESTINAL: As above. GENITOURINARY: Negative. MUSCULOSKELETAL: Negative. HEMATOLOGIC: As above. ENDOCRINE: Negative. DERMATOLOGY: Negative. PSYCHIATRIC: Negative. NEUROLOGIC: As above. PHYSICAL EXAMINATION: VITAL SIGNS: Temperature 98.7, blood pressure 145/68, O2 saturation 99% on room air. GENERAL: She is alert and oriented x3, in no acute distress. She is overweight. HEENT: Atraumatic, normocephalic. Pupils are equal, round, reactive to light. Extraocular muscles are intact. No scleral icterus. Oropharynx dry mucosa. No lesions or thrush. No mucositis. NECK: No thyromegaly. No palpable mass. LYMPHATIC: No palpable cervical, clavicular, axillary, or inguinal lymph nodes. HEART: Regular S1, S2. No murmur. LUNGS: Clear to auscultation bilaterally. ABDOMEN: Soft, nontender. I could not palpate liver or spleen. EXTREMITIES: No cyanosis, clubbing, no edema. BACK: No paravertebral tenderness. SKIN: No rash or petechiae. NEUROLOGIC: Nonfocal. LABORATORY DATA: WBC 9.6, hemoglobin 10.8, platelet count of 17. ASSESSMENT: 1. Acute lymphoblastic leukemia. The patient first presented with thrombocytopenia a few weeks ago. She has good response to prednisone and the platelet count normalized. However, when the prednisone was tapered off her platelet count started trending down. Her peripheral blood smear started showing early white cell precursors including blasts. When I saw her in clinic today, her platelet count had trended down to 22,000. White blood cell counts are in the 14,000 with at least 10% blasts. I have sent a flow cytometry and pathology said that patient has acute lymphoblastic leukemia. FISH study for BCR/ABL is still pending. Clinically the patient has constitutional symptoms with increased weakness. I had an extensive discussion with patient regarding the diagnosis, prognosis and treatment options. The patient is going to need a bone marrow biopsy and cytogenetic study to see if she has a [place]land chromosome. She is going to need induction chemotherapy. We discussed the pros and cons and potential side effect of induction chemotherapy. I think the patient would be better served to be treated at a tertiary center and she agrees. I am going to have child support case officer assist in transferring the patient to [facility] for induction therapy. 2. Anemia and thrombocytopenia due to acute lymphoblastic leukemia. Continue to monitor CBC and arrange for transfusion as needed. 3. History of congestive heart failure. We will get an echocardiogram to evaluate ejection fraction to see if she will be a candidate for anthracycline. 4. Hepatic steatosis. 5. Hypothyroidism. 6. Obstructive sleep apnea. 7. Bilateral distal branch pulmonary embolism. She is not a candidate for anticoagulation. She has no symptoms at this time. 8. Hypertension. 9. Hyperlipidemia. 10. History of ruptured bowel. 11. Hyperuricemia likely due to white cell turnover. PLAN: 1. Monitor CBC. 2. Transfuse 1 unit of platelets and try to keep her platelet count around 15,000. 3. Start allopurinol. 4. Arrange for echocardiogram. 5. Consult case management to assist in transferring the patient to [facility] for induction chemotherapy. Thank you, Dr. Oropeza, for asking me to see this patient. MD AUGUSTIN Bertrand/ , 07:44 PM , 08:18 PM JEANETTE
[2018-01-15] MEDS: Allopurinol 300 MG Tablet PO SCH (23:10)
[2018-01-15] MEDS: Senna/Docusate Sodium 8.6/50 MG Tablet PO SCH (23:11)
[2018-01-15] MEDS: Carvedilol 12.5 MG Tablet PO SCH (23:11)
[2018-01-16 05:05] LABS: Hematocrit 27.4 % (35.0-46.0); Hemoglobin 9.4 gm/dL (11.6-15.3); Mean Corpuscular HGB Conc 34.3 % (32.0-36.0); Mean Corpuscular Hemoglobin 30.3 pg (27.0-34.0); Mean Corpuscular Volume 88.4 fL (80.0-100.0); Mean Platelet Volume 8.7 fL (7.0-11.0); Platelet Count 33 th/mm3 (150-450); Red Blood Count 3.09 mil/mm3 (4.00-5.30); White Blood Count 18.1 th/mm3 (4.0-11.0)
[2018-01-16 05:25] LABS: Alanine Aminotransferase 61 U/L (10-53); Albumin 3.5 g/dL (3.4-5.0); Anion Gap 10 meq/L (5-15); Aspartate Aminotransferase 61 U/L (15-37); Blood Urea Nitrogen 10 mg/dL (7-18); Calcium 9.2 mg/dL (8.5-10.1); Chloride 103 meq/L (98-107); Glomerular Filtration Rate 72 mL/min (>89); Glucose,Random 101 mg/dL (74-106); Potassium 3.3 meq/L (3.5-5.1); Sodium 141 meq/L (136-145)
[2018-01-16 05:28] LABS: Alkaline Phosphatase 68 U/L (45-117); Total Protein 6.6 g/dL (6.4-8.2)
[2018-01-16] MEDS: Acetaminophen 325 MG Tablet PO PRN (05:48)
[2018-01-16 08:12] LABS: Blast Cells 13 % (0-0); Eosinophils 3 % (0-4); Lymphocytes 56 % (9-44); Monocytes 4 % (0-8); Plasma Cells 1 % (0-0); Tallied Nucleated RBC 3 (0-0)
[2018-01-16 08:15] LABS: Platelet Morphology Normal (Normal)
[2018-01-16] MEDS: Allopurinol 300 MG Tablet PO SCH ×2 (08:38→10:45)
[2018-01-16] MEDS: Carvedilol 12.5 MG Tablet PO SCH ×2 (08:38→21:10)
[2018-01-16] MEDS: Lisinopril 5 MG Tablet PO SCH (08:39)
[2018-01-16] MEDS: Gabapentin 100 MG Capsule PO SCH ×2 (08:39→09:54)
[2018-01-16] MEDS: Senna/Docusate Sodium 8.6/50 MG Tablet PO SCH ×2 (08:40→21:13)
[2018-01-16] MEDS ORDERED: Pantoprazole Sodium 20 MG DR Tablet PO SCH (09:00)
--- NOTE | 2018-01-16 10:12 | P.PN ---
Physical Exam Vital signs: Vital Signs 01/15/18 12:54 01/15/18 15:10 01/15/18 16:54 Temperature 98.9 F 98.7 F Pulse Rate 89 90 99 H Respiratory Rate 16 16 20 Blood Pressure 122/74 137/74 145/68 H Pulse Oximetry 99 97 99 01/15/18 20:00 01/16/18 00:00 01/16/18 01:14 Temperature 98.5 F 98.4 F 99.6 F Pulse Rate 105 H 93 H 102 H Respiratory Rate 18 Blood Pressure 138/97 H 136/86 117/67 Pulse Oximetry 100 100 98 01/16/18 03:13 01/16/18 03:17 01/16/18 04:00 Temperature 98.4 F 100.1 F H 100.4 F H Pulse Rate 90 103 H 99 H Respiratory Rate 18 Blood Pressure 163/68 H 107/66 107/66 Pulse Oximetry 99 99 98 01/16/18 08:00 01/16/18 09:00 Temperature 98 F Pulse Rate 97 H Respiratory Rate 16 Blood Pressure 104/78 Pulse Oximetry Intake & Output 01/15/18 01/16/18 01/16/18 18:59 06:59 18:59 Intake Total 360 / 360 480 / 480 Output Total 600 / 600 Balance 360 / 360 -120 / -120 Weight 98.883 kg Intake: Oral 360 / 360 480 / 480 Intake (Blood Product) Amt 0 / 0 Plt Pheresis B Leukoreduced 0 / 0 Unit [id number] Output: Urine 600 / 600 Other: Date of Last Bowel Movement 01/15/18 01/15/18 01/15/18 # Bowel Movements 0 Narrative: Subjective: Patient in the chair. No fever or chills. Some shortness of breath however improved. No tachycardia. No chest pain. Denies fever or chills. She is not coughing. Physical exam: GENERAL: Pleasant 62 yo F, well-developed well-nourished, in no acute distress. CARDIOVASCULAR: Regular rate and rhythm. No murmur appreciated. RESPIRATORY: No accessory muscle use. Clear to auscultation. Breath sounds equal bilaterally. GASTROINTESTINAL: Abdomen soft, non-tender, nondistended. MUSCULOSKELETAL: No obvious deformities. No clubbing. No cyanosis. No edema. NEUROLOGICAL: Awake and alert. No obvious cranial nerve deficits. Motor grossly within normal limits. Normal speech. Assessment and Plan ALL/ ITP The pt was being worked up by Dr. 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 PLT count is currently 17. The pt also has a history of ITP. She has not had any recent bleeding. - oncology consult placed. - follow CBC and transfuse per oncology. - hold ASA. PE Recently diagnosed. Not on anticoagulation 2/2 thrombocytopenia. She denies any chest pain. - oxygen and nebs as needed. - incentive spirometry. Fatigue/ Dizziness S/t above. - PT if needed. Pt is ambulatory at this time. CHF Chronic, systolic. S/p AICD placement. Pt appears euvolemic. - resume home regimen. HTN Blood pressure relatively controlled at this time. - resume home regimen. - clonidine as needed. PPx: Contraindicated s/t thrombocytopenia Results - Labs CBC & Chem 7: 01/16/18 04:37 01/16/18 04:37 Laboratory Results - last 24 hr 01/15/18 01/15/18 01/15/18 15:00 15:00 22:17 WBC 9.6 RBC 3.53 L Hgb 10.8 L Hct 31.4 L MCV 89.0 MCH 30.6 MCHC 34.4 RDW 15.7 Plt Count 17 L* MPV 8.8 Prelim Diff (Auto) Slide review pending WBC Differential Manual diff final Seg Neuts % (Manual) 27 Band Neuts % (Manual) 7 H Lymphocytes % (Manual) 58 H Monocytes % (Manual) 3 Eosinophils % (Manual) 1 Metamyelocytes % (Man) 3 H Myelocytes % (Man) 1 H Blast Cells % (Manual) Plasma Cell % (Manual) Abs Neuts (Manual) 3.6 Nucleated RBCs/100 WBC 2 H Differential Comment . Platelet Estimate Rare L Platelet Morphology Normal Tear Drop Cells 1+ H Sodium 140 Potassium 3.5 Chloride 104 Carbon Dioxide 23.9 Anion Gap 12 BUN 11 Creatinine 1.05 H Estimated GFR 53 L Random Glucose 165 H Uric Acid 9.4 H Calcium 9.6 Total Bilirubin 1.4 H AST 68 H ALT 81 H Alkaline Phosphatase 73 Lactate Dehydrogenase 423 H Total Protein 7.4 Albumin 3.6 Blood Type A Positive Blood Type Recheck Not needed Bld Prod Order Comment 01/16/18 01/16/1818 04:37 04:37 04:37 WBC 18.1 H D RBC 3.09 L Hgb 9.4 L Hct 27.4 L MCV 88.4 MCH 30.3 MCHC 34.3 RDW 15.0 Plt Count 33 L D MPV 8.7 Prelim Diff (Auto) Manual diff required WBC Differential Manual diff final Seg Neuts % (Manual) 15 L Band Neuts % (Manual) 8 H Lymphocytes % (Manual) 56 H Monocytes % (Manual) 4 Eosinophils % (Manual) 3 Metamyelocytes % (Man) Myelocytes % (Man) Blast Cells % (Manual) 13 H Plasma Cell % (Manual) 1 H Abs Neuts (Manual) 4.2 Nucleated RBCs/100 WBC 3 H Differential Comment . Platelet Estimate Low L Platelet Morphology Normal Tear Drop Cells Sodium 141 Potassium 3.3 L Chloride 103 Carbon Dioxide 28.0 Anion Gap 10 BUN 10 Creatinine 0.81 Estimated GFR 72 L Random Glucose 101 Uric Acid 10.0 H Calcium 9.2 Total Bilirubin 1.9 H AST 61 H ALT 61 H Alkaline Phosphatase 68 Lactate Dehydrogenase 446 H Total Protein 6.6 D Albumin 3.5 Blood Type Blood Type Recheck Bld Prod Order Comment
--- NOTE | 2018-01-16 10:14 | P.PNONC ---
Subjective Interval history: T-max 100.4 overnight Patient reports she is just had echocardiogram Having some back pain Has shortness of breath with exertion No bleeding No other acute complaints Objective Vital Signs/Intake & Output: Vital Signs 01/15/18 12:54 01/15/18 15:10 01/15/18 16:54 Temperature 98.9 F 98.7 F Pulse Rate 89 90 99 H Respiratory Rate 16 16 20 Blood Pressure 122/74 137/74 145/68 H Pulse Oximetry 99 97 99 01/15/18 20:00 01/16/18 00:00 01/16/18 01:14 Temperature 98.5 F 98.4 F 99.6 F Pulse Rate 105 H 93 H 102 H Respiratory Rate 20 18 18 Blood Pressure 138/97 H 136/86 117/67 Pulse Oximetry 100 100 98 01/16/18 03:13 01/16/18 03:17 01/16/18 04:00 Temperature 98.4 F 100.1 F H 100.4 F H Pulse Rate 90 103 H 99 H Respiratory Rate 20 18 18 Blood Pressure 163/68 H 107/66 107/66 Pulse Oximetry 99 99 98 01/16/18 08:00 01/16/18 09:00 Temperature 98 F Pulse Rate 97 H Respiratory Rate 16 Blood Pressure 104/78 Pulse Oximetry Intake & Output 01/15/18 01/16/18 01/16/18 18:59 06:59 18:59 Intake Total 360 / 360 480 / 480 Output Total 600 / 600 Balance 360 / 360 -120 / -120 Weight 218 lb Intake: Oral 360 / 360 480 / 480 Intake (Blood Product) Amt 0 / 0 Plt Pheresis B Leukoreduced 0 / 0 Unit [id number] Output: Urine 600 / 600 Other: Date of Last Bowel Movement 01/15/18 01/15/18 01/15/18 # Bowel Movements 0 Result Diagrams: 01/16/18 04:37 01/16/18 04:37 Laboratory Results: Laboratory Results - last 24 hr 01/15/18 01/15/18 01/15/18 15:00 15:00 22:17 WBC 9.6 RBC 3.53 L Hgb 10.8 L Hct 31.4 L MCV 89.0 MCH 30.6 MCHC 34.4 RDW 15.7 Plt Count 17 L* MPV 8.8 Prelim Diff (Auto) Slide review pending WBC Differential Manual diff final Seg Neuts % (Manual) 27 Band Neuts % (Manual) 7 H Lymphocytes % (Manual) 58 H Monocytes % (Manual) 3 Eosinophils % (Manual) 1 Metamyelocytes % (Man) 3 H Myelocytes % (Man) 1 H Blast Cells % (Manual) Plasma Cell % (Manual) Abs Neuts (Manual) 3.6 Nucleated RBCs/100 WBC 2 H Differential Comment . Platelet Estimate Rare L Platelet Morphology Normal Tear Drop Cells 1+ H Sodium 140 Potassium 3.5 Chloride 104 Carbon Dioxide 23.9 Anion Gap 12 BUN 11 Creatinine 1.05 H Estimated GFR 53 L Random Glucose 165 H Uric Acid 9.4 H Calcium 9.6 Total Bilirubin 1.4 H AST 68 H ALT 81 H Alkaline Phosphatase 73 Lactate Dehydrogenase 423 H Total Protein 7.4 Albumin 3.6 Blood Type A Positive Blood Type Recheck Not needed Bld Prod Order Comment 01/16/18 01/16/18 01/16/18 04:37 04:37 04:37 WBC 18.1 H D RBC 3.09 L Hgb 9.4 L Hct 27.4 L MCV 88.4 MCH 30.3 MCHC 34.3 RDW 15.0 Plt Count 33 L D MPV 8.7 Prelim Diff (Auto) Manual diff required WBC Differential Manual diff final Seg Neuts % (Manual) 15 L Band Neuts % (Manual) 8 H Lymphocytes % (Manual) 56 H Monocytes % (Manual) 4 Eosinophils % (Manual) 3 Metamyelocytes % (Man) Myelocytes % (Man) Blast Cells % (Manual) 13 H Plasma Cell % (Manual) 1 H Abs Neuts (Manual) 4.2 Nucleated RBCs/100 WBC 3 H Differential Comment . Platelet Estimate Low L Platelet Morphology Normal Tear Drop Cells Sodium 141 Potassium 3.3 L Chloride 103 Carbon Dioxide 28.0 Anion Gap 10 BUN 10 Creatinine 0.81 Estimated GFR 72 L Random Glucose 101 Uric Acid 10.0 H Calcium 9.2 Total Bilirubin 1.9 H AST 61 H ALT 61 H Alkaline Phosphatase 68 Lactate Dehydrogenase 446 H Total Protein 6.6 D Albumin 3.5 Blood Type Blood Type Recheck Bld Prod Order Comment Medications: Active Medications Generic Name Dose Route Start Last Admin Trade Name Freq PRN Reason Stop Dose Admin Acetaminophen 650 mg 01/15/18 16:15 01/16/18 05:48 Tylenol PO 650 mg Q4H PRN Administration Temp > 100.4 Allopurinol 300 mg 01/15/18 19:30 01/15/18 23:10 Zyloprim PO Not Given DAILY LEXA Atorvastatin Calcium 10 mg 01/16/18 09:00 01/16/18 09:53 Lipitor PO Not Given DAILY LEXA Carvedilol 12.5 mg 01/15/18 21:00 01/16/18 08:38 Coreg PO 12.5 mg BID LEXA Administration Gabapentin 100 mg 01/16/18 09:00 01/16/18 09:54 Neurontin PO Not Given DAILY LEXA Hydrochlorothiazide 12.5 mg 01/16/18 09:00 01/16/18 08:37 Microzide PO 12.5 mg DAILY LEXA Administration Sodium Chloride 250 mls @ 15 mls/hr 01/15/18 20:00 01/16/18 05:50 Ns Inj IV.SIG 01/16/18 12:39 15 mls/hr ONCE LEXA Administration Levothyroxine Sodium 25 mcg 01/16/18 06:00 01/16/18 05:48 Synthroid PO 25 mcg DAILY@0600 LEXA Administration Lisinopril 5 mg 01/16/18 09:00 01/16/18 08:39 Prinivil PO 5 mg DAILY LXEA Administration Multivitamins 1 tab 01/16/18 09:00 01/16/18 08:39 Theragran PO 1 tab DAILY LEXA Administration Pantoprazole Sodium 20 mg 01/16/18 09:00 01/16/18 08:37 Protonix PO 20 mg DAILY LEXA Administration Senna/Docusate Sodium 1 tab 01/15/18 21:00 01/16/18 08:40 Nataliia-Colace PO 1 tab BID LEXA Administration Sodium Chloride 2 ml 01/15/18 14:25 01/16/18 08:40 Ns Flush IV.FLUSH 2 ml PRN PRN Administration FLUSH AFTER USING IV ACCESS Vitamin D 5,000 unit 01/16/18 09:00 01/16/18 08:39 Vitamin D3 PO 5,000 unit DAILY LEXA Administration Objective Remarks: GENERAL: Overweight older female sitting up in bed in no obvious distress SKIN: Warm and dry. HEAD: Normocephalic. EYES: No scleral icterus. No injection or drainage. NECK: Supple, trachea midline. No JVD or lymphadenopathy. CARDIOVASCULAR: Regular rate and rhythm without murmurs. RESPIRATORY: Clear posteriorly. Breathing unlabored at rest. GASTROINTESTINAL: Abdomen soft, non-tender, nondistended. EXTREMITIES: No cyanosis, or edema. MUSCULOSKELETAL: Adequate muscle tone. NEUROLOGICAL: No obvious focal deficit. Awake, alert, and oriented x3. Assessment/Plan (1) ALL (acute lymphocytic leukemia) Code(s): C91.00 - Acute lymphoblastic leukemia not having achieved remission Status: Acute (2) Pulmonary embolus Code(s): I26.99 - Other pulmonary embolism without acute cor pulmonale Status : Acute - Plan 62-year-old female admitted from [facility] with new diagnosis of acute lymphoblastic leukemia 1. Await echocardiogram results 2. Discussed with housing case manager; will attempt to transfer patient to either [facility] or [facility] for induction chemotherapy as she has comorbidities including CHF and pulmonary embolism. 3. Start tramadol for back pain. 4. Continue allopurinol for tumor lysis syndrome prophylaxis. Check CBC, BMP, Uric acid in am. 5. Plan for bone marrow biopsy on Thursday if the patient is still here at [place]. Addendum: Dr Lazcano has spoken with Dr Adiel Ness at [facility]. Currently no bed available, but will plan to transfer when possible. - Attending Statement The exam, history, and the medical decision-making described in the above note were completed with the assistance of the mid-level provider. I reviewed and agree with the findings presented. I attest that I had a [id number] encounter with the patient on the same day, and personally performed and documented my assessment and findings in the medical record. ALL anticipating transfer to [facility] pending bed availability supportive care BM bx on Thursday if still here (1) ALL (acute lymphocytic leukemia) Qualifiers: Leukemia Active/Remission status: without remission Qualified Code(s): C91.00 - Acute lymphoblastic leukemia not having achieved remission (2) Pulmonary embolus Qualifiers: Pulmonary embolism type: other Chronicity: chronic Acute cor pulmonale presence: without acute cor pulmonale Qualified Code(s): I27.82 - Chronic pulmonary embolism
--- NOTE | 2018-01-16 11:06 | ECHRPT ---
Indication: PRE CHEMO CONCLUSIONS Limited echo for LVEF The left ventricular systolic function is normal with an estimated ejection fraction in the range of 60-65%, possible mild basal-inf hypokinesis. BP: / HR: Rhythm: MEASUREMENTS (Male / Female) Normal Values Technical Quality: 2D ECHO LV Ejection Fraction MOD BP 61.8 % >= 55 % LV Ejection Fraction MOD 4C 58.7 % LV Ejection Fraction 4C AL 60.4 % LV Ejection Fraction MOD 2C 64.8 % LV Ejection Fraction 2C AL 64.4 % M-MODE LV Diastolic Diameter MM 5.4 cm 4.2 - 5.9 / 3.9 - 5.3 cm LV Systolic Diameter MM 3.8 cm LV Ejection Fraction MM Teich 55.9 % IVS Diastolic Thickness MM 1.1 cm 0.6 - 1.0 / 0.6 - 0.9 cm LVPW Diastolic Thickness MM 1.1 cm 0.6 - 1.0 / 0.6 - 0.9 cm LV Relative Wall Thickness MM 0.4 0.24 - 0.42 / 0.22 - 0.42 FINDINGS LEFT VENTRICLE The left ventricular systolic function is normal with an estimated ejection fraction in the range of 60-65%. Normal left ventricular size. Wall thickness is normal. No regional wall motion abnormalities are present. David Carrasco MD (Electronically Signed) Final Date:16 January 2018 11:04
--- NOTE | 2018-01-16 16:12 | ECG ---
Date Performed: 01/15/2018 Time Performed: 14:56:10 PTAGE: 62 years EKG: SINUS TACHYCARDIA WITH OCCASIONAL VENTRICULAR PREMATURE COMPLEXES POSSIBLE INFERIOR MYOCARD IAL INFARCTION, AGE UNDETERMINED NONSPECIFIC T-WAVE CHANGE Compared to previous tracing, the PVCs are new. ABNORMAL RHYTHM ECG PREVIOUS TRACING : 10/30/2017 08.20 DOCTOR: Nishant Chiu Interpretating Date/Time 01/16/2018 16:10:57
[2018-01-16] MEDS ORDERED: Gabapentin 100 MG Capsule PO SCH (21:00)
[2018-01-16] MEDS: Famotidine 20 MG Tablet PO SCH (21:13)
[2018-01-16] MEDS ORDERED: Gabapentin 100 MG Capsule PO ONE (22:57)
[2018-01-17 06:03] LABS: Hematocrit 26.1 % (35.0-46.0); Mean Corpuscular HGB Conc 34.5 % (32.0-36.0); Mean Corpuscular Hemoglobin 30.7 pg (27.0-34.0); Mean Corpuscular Volume 89.2 fL (80.0-100.0); Mean Platelet Volume 8.3 fL (7.0-11.0); Red Blood Count 2.93 mil/mm3 (4.00-5.30); Red Cell Distribution Width 15.5 % (11.6-17.2); White Blood Count 11.5 th/mm3 (4.0-11.0)
[2018-01-17 06:10] LABS: Platelet Count 16 th/mm3 (150-450)
[2018-01-17 06:15] LABS: Calcium 8.9 mg/dL (8.5-10.1); Carbon Dioxide 27.8 meq/L (21.0-32.0)
[2018-01-17 06:16] LABS: Uric Acid 8.9 mg/dl (2.6-6.0)
--- NOTE | 2018-01-17 08:38 | P.PN ---
Physical Exam Vital signs: Vital Signs 01/16/18 09:00 01/16/18 15:53 01/16/18 16:49 Temperature 99.6 F Pulse Rate 97 H 92 H Respiratory Rate Blood Pressure 122/76 Pulse Oximetry 96 98 01/16/18 20:10 01/16/18 21:10 01/17/18 00:00 Temperature 98.4 F 98.7 F Pulse Rate 93 H 95 H 86 Respiratory Rate 18 16 Blood Pressure 124/76 102/55 L Pulse Oximetry 96 96 01/17/18 00:17 01/17/18 04:00 01/17/18 04:07 Temperature 98.9 F Pulse Rate 82 80 82 Respiratory Rate Blood Pressure 121/59 L Pulse Oximetry 96 01/17/18 07:38 Temperature Pulse Rate 74 Respiratory Rate Blood Pressure Pulse Oximetry Intake & Output 01/16/18 01/17/18 01/17/18 18:59 06:59 18:59 Intake Total 800 / 800 240 / 240 Output Total 1650 / 1650 Balance 800 / 800 -1410 / -1410 Weight 98.9 kg Intake: Oral 800 / 800 240 / 240 Output: Urine 1650 / 1650 Other: # Voids 4 Date of Last Bowel Movement 01/15/18 01/15/18 Narrative: Subjective: Patient in the chair. Family at bedside very supportive BP into a lower side. Adjust BP meds, give 500 IV NS bolus Caleb nieves, sob, n/v/d/c. Physical exam: GENERAL: Pleasant 62 yo F, well-developed well-nourished, in no acute distress. CARDIOVASCULAR: Regular rate and rhythm. No murmur appreciated. RESPIRATORY: No accessory muscle use. Clear to auscultation. Breath sounds equal bilaterally. GASTROINTESTINAL: Abdomen soft, non-tender, nondistended. MUSCULOSKELETAL: No obvious deformities. No clubbing. No cyanosis. No edema. NEUROLOGICAL: Awake and alert. No obvious cranial nerve deficits. Motor grossly within normal limits. Normal speech. Assessment and Plan ALL/ ITP The pt was being worked up by Dr. 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 PLT count is currently 17. The pt also has a history of ITP. She has not had any recent bleeding. - oncology consult placed. - follow CBC and transfuse per oncology. - hold ASA. PE Recently diagnosed. Not on anticoagulation 2/2 thrombocytopenia. She denies any chest pain. - oxygen and nebs as needed. - incentive spirometry. Fatigue/ Dizziness S/t above. - PT if needed. Pt is ambulatory at this time. low BP SBP in 80s. adjust BP meds. Decreased carvedilol, DC HCTZ contiue lisinopril, parameters to hols BP if SBP< 110 . CHF Chronic, systolic. S/p AICD placement. Pt appears euvolemic. - resume home regimen. HTN Blood pressure relatively controlled at this time. - resume home regimen. - clonidine as needed. PPx: Contraindicated 2/2 thrombocytopenia Discussed with the patient, nurse, family Results - Labs CBC & Chem 7: 01/17/18 04:39 01/17/18 04:39 Laboratory Results - last 24 hr 01/17/18 01/17/18 04:39 04:39 WBC 11.5 H RBC 2.93 L Hgb 9.0 L Hct 26.1 L MCV 89.2 MCH 30.7 MCHC 34.5 RDW 15.5 Plt Count 16 L* D MPV 8.3 Prelim Diff (Auto) Manual diff required Differential Comment . Sodium 139 Potassium 3.0 L Chloride 101 Carbon Dioxide 27.8 Anion Gap 10 BUN 10 Creatinine 0.80 Estimated GFR 73 L Random Glucose 90 Uric Acid 8.9 H Calcium 8.9
[2018-01-17 08:58] LABS: Blast Cells 34 % (0-0); Eosinophils 1 % (0-4); Lymphocytes 37 % (9-44); Monocytes 7 % (0-8); Myelocytes 1 % (0-0); Platelet Estimate Rare (Normal); Platelet Morphology Normal (Normal); Tallied Nucleated RBC 1 (0-0); Tear Drop Cells 1+
[2018-01-17] MEDS ORDERED: Acetaminophen 325 MG Tablet PO PRN (09:08)
[2018-01-17] MEDS: Carvedilol 12.5 MG Tablet PO SCH (09:38)
[2018-01-17] MEDS: Lisinopril 5 MG Tablet PO SCH (09:38)
[2018-01-17] MEDS: Famotidine 20 MG Tablet PO SCH ×2 (09:38→20:26)
[2018-01-17] MEDS: Senna/Docusate Sodium 8.6/50 MG Tablet PO SCH ×2 (09:38→20:26)
[2018-01-17] MEDS: Allopurinol 300 MG Tablet PO SCH (09:38)
[2018-01-17] MEDS ORDERED: Sodium Chlor 0.9% Inj 250 ML IV.SIG SCH (10:00)
--- NOTE | 2018-01-17 10:05 | P.PNONC ---
Subjective Interval history: Afebrile overnight Patient resting in bed in no obvious distress States her back pain is much improved No bleeding Objective Vital Signs/Intake & Output: Vital Signs 01/16/18 15:53 01/16/18 16:49 01/16/18 20:10 Temperature 99.6 F Pulse Rate 92 H 93 H Respiratory Rate Blood Pressure 122/76 Pulse Oximetry 96 98 01/16/18 21:10 01/17/18 00:00 01/17/18 00:17 Temperature 98.4 F 98.7 F Pulse Rate 95 H 86 82 Respiratory Rate 18 16 Blood Pressure 124/76 102/55 L Pulse Oximetry 96 96 01/17/18 04:00 01/17/18 04:07 01/17/18 07:38 Temperature 98.9 F Pulse Rate 80 82 74 Respiratory Rate Blood Pressure 121/59 L Pulse Oximetry 96 01/17/18 08:55 01/17/18 09:36 Temperature 98.6 F Pulse Rate 93 H Respiratory Rate 18 Blood Pressure 134/83 Pulse Oximetry 98 98 Intake & Output 01/16/18 01/17/18 01/17/18 18:59 06:59 18:59 Intake Total 800 / 800 240 / 240 Output Total 1650 / 1650 Balance 800 / 800 -1410 / -1410 Weight 218 lb 0.595 oz Intake: Oral 800 / 800 240 / 240 Output: Urine 1650 / 1650 Other: # Voids 4 Date of Last Bowel Movement 01/15/18 01/15/18 01/15/18 Result Diagrams: 01/17/18 04:39 01/17/18 04:39 Laboratory Results: Laboratory Results - last 24 hr 01/17/18 01/17/18 04:39 04:39 WBC 11.5 H RBC 2.93 L Hgb 9.0 L Hct 26.1 L MCV 89.2 MCH 30.7 MCHC 34.5 RDW 15.5 Plt Count 16 L* D MPV 8.3 Prelim Diff (Auto) Manual diff required WBC Differential Manual diff final Seg Neuts % (Manual) 12 L Band Neuts % (Manual) 7 H Lymphocytes % (Manual) 37 Monocytes % (Manual) 7 Eosinophils % (Manual) 1 Basophils % (Manual) 1 Myelocytes % (Man) 1 H Blast Cells % (Manual) 34 H Abs Neuts (Manual) 2.3 Nucleated RBCs/100 WBC 1 H Differential Comment . Platelet Estimate Rare L Platelet Morphology Normal Tear Drop Cells 1+ H Sodium 139 Potassium 3.0 L Chloride 101 Carbon Dioxide 27.8 Anion Gap 10 BUN 10 Creatinine 0.80 Estimated GFR 73 L Random Glucose 90 Uric Acid 8.9 H Calcium 8.9 Medications: Active Medications Generic Name Dose Route Start Last Admin Trade Name Freq PRN Reason Stop Dose Admin Acetaminophen 650 mg 01/15/18 16:15 01/16/18 05:48 Tylenol PO 650 mg Q4H PRN Administration Temp > 100.4 Allopurinol 300 mg 01/15/18 19:30 01/17/18 09:38 Zyloprim PO 300 mg DAILY LEXA Administration Atorvastatin Calcium 10 mg 01/16/18 21:00 01/16/18 21:10 Lipitor PO 10 mg HS LEXA Administration Carvedilol 12.5 mg 01/15/18 21:00 01/17/18 09:38 Coreg PO 12.5 mg BID LEXA Administration Famotidine 20 mg 01/16/18 21:00 01/17/18 09:38 Pepcid PO 20 mg BID LEXA Administration Hydrochlorothiazide 12.5 mg 01/16/18 09:00 01/17/18 09:38 Microzide PO 12.5 mg DAILY LEXA Administration Levothyroxine Sodium 25 mcg 01/16/18 06:00 01/17/18 05:11 Synthroid PO 25 mcg DAILY@0600 LEXA Administration Lisinopril 5 mg 01/16/18 09:00 01/17/18 09:38 Prinivil PO 5 mg DAILY LEXA Administration Metoclopramide HCl 5 mg 01/15/18 16:15 01/16/18 11:23 Reglan Inj IV.PUSH 5 mg Q6HR PRN Administration NAUSEA OR VOMITING Protocol Multivitamins 1 tab 01/16/18 09:00 01/17/18 09:38 Theragran PO 1 tab DAILY LEXA Administration Senna/Docusate Sodium 1 tab 01/15/18 21:00 01/17/18 09:38 Nataliia-Colace PO 1 tab BID LEXA Administration Sodium Chloride 2 ml 01/15/18 14:25 01/16/18 08:40 Ns Flush IV.FLUSH 2 ml PRN PRN Administration FLUSH AFTER USING IV ACCESS Tramadol HCl 50 mg 01/16/18 09:45 01/16/18 10:45 Ultram PO 50 mg Q6H PRN Administration PAIN SCALE 1 TO 10 Vitamin D 5,000 unit 01/16/18 09:00 01/17/18 09:38 Vitamin D3 PO 5,000 unit DAILY LEXA Administration Objective Remarks: GENERAL: Overweight older female sitting up in bed in no obvious distress SKIN: Warm and dry. HEAD: Normocephalic. EYES: No scleral icterus. No injection or drainage. NECK: Supple, trachea midline. No JVD or lymphadenopathy. CARDIOVASCULAR: Regular rate and rhythm without murmurs. RESPIRATORY: Clear posteriorly. Breathing unlabored at rest. GASTROINTESTINAL: Abdomen soft, non-tender, nondistended. EXTREMITIES: No cyanosis, or edema. MUSCULOSKELETAL: Adequate muscle tone. NEUROLOGICAL: No obvious focal deficit. Awake, alert, and oriented x3. Assessment/Plan (1) ALL (acute lymphocytic leukemia) Code(s): C91.00 - Acute lymphoblastic leukemia not having achieved remission Status: Acute (2) Pulmonary embolus Code(s): I26.99 - Other pulmonary embolism without acute cor pulmonale Status : Acute - Plan 62-year-old female admitted from [facility] with new diagnosis of acute lymphoblastic leukemia 1. Echocardiogram shows EF of 60-65%. This is improved as patient reports her previous echo was around 35%. 2. Anticipate transfer to [facility] on Thursday or Thursday. Dr Adiel Ness to be accepting physician. 3. Bone marrow biopsy in a.m. 4. Transfuse 1 unit platelets today 5. Replace potassium, check Mag level. Monitor daily CBC, BMP, uric acid, mag, phos - Attending Statement The exam, history, and the medical decision-making described in the above note were completed with the assistance of the mid-level provider. I reviewed and agree with the findings presented. I attest that I had a [id number] encounter with the patient on the same day, and personally performed and documented my assessment and findings in the medical record. ALL anticipating transfer to [facility] does not want bone marrow bx done here transfuse platelets daily cbc (1) ALL (acute lymphocytic leukemia) Qualifiers: Leukemia Active/Remission status: without remission Qualified Code(s): C91.00 - Acute lymphoblastic leukemia not having achieved remission (2) Pulmonary embolus Qualifiers: Pulmonary embolism type: other Chronicity: chronic Acute cor pulmonale presence: without acute cor pulmonale Qualified Code(s): I27.82 - Chronic pulmonary embolism
[2018-01-17] MEDS: Acetaminophen 325 MG Tablet PO PRN (10:22)
[2018-01-17 10:47] LABS: Magnesium 1.8 mg/dL (1.5-2.5)
[2018-01-17] MEDS ORDERED: Sodium Chlor 0.9% Inj 500 ML IV.SIG ONE (12:38)
[2018-01-17] MEDS: Carvedilol 6.25 MG Tablet PO SCH (20:21)
[2018-01-17] MEDS ORDERED: Gabapentin 100 MG Capsule PO SCH (21:00)
[2018-01-18 06:55] LABS: Hematocrit 27.5 % (35.0-46.0); Hemoglobin 9.4 gm/dL (11.6-15.3); Mean Corpuscular Hemoglobin 30.4 pg (27.0-34.0); Mean Corpuscular Volume 89.3 fL (80.0-100.0); Mean Platelet Volume 8.4 fL (7.0-11.0); Platelet Count 27 th/mm3 (150-450); Red Blood Count 3.08 mil/mm3 (4.00-5.30); Red Cell Distribution Width 15.2 % (11.6-17.2); White Blood Count 20.1 th/mm3 (4.0-11.0)
[2018-01-18 07:12] LABS: Calcium 9.3 mg/dL (8.5-10.1); Carbon Dioxide 27.5 meq/L (21.0-32.0); Magnesium 1.9 mg/dL (1.5-2.5); Phosphorus 3.8 mg/dL (2.5-4.9); Potassium 3.9 meq/L (3.5-5.1); Uric Acid 7.8 mg/dl (2.6-6.0)
[2018-01-18] MEDS: Carvedilol 6.25 MG Tablet PO SCH (08:01)
[2018-01-18] MEDS: Famotidine 20 MG Tablet PO SCH (08:01)
[2018-01-18] MEDS: Allopurinol 300 MG Tablet PO SCH (08:01)
[2018-01-18] MEDS: Senna/Docusate Sodium 8.6/50 MG Tablet PO SCH (08:02)
[2018-01-18] MEDS ORDERED: Loratadine 10 MG Tablet PO SCH (08:15)
[2018-01-18 08:50] LABS: Blast Cells 30 % (0-0); Lymphocytes 42 % (9-44); Metamyelocytes 2 % (0-1); Monocytes 3 % (0-8); Platelet Morphology Normal (Normal); Tallied Nucleated RBC 3 (0-0)
--- NOTE | 2018-01-18 13:32 | P.PNONC ---
Subjective Interval history: Afebrile. Awaiting transfer to . Patient with sinus headache, drainage and nausea, earlier this a.m. Claritin was requested and ordered. The patient reports that this helped her symptoms and she is now feeling much better. Objective Vital Signs/Intake & Output: Vital Signs 01/17/18 14:10 01/17/18 16:00 01/17/18 16:34 Temperature 98.0 F 98.6 F Pulse Rate 83 75 90 Respiratory Rate 18 20 Blood Pressure 100/63 127/82 Pulse Oximetry 95 97 01/17/18 20:00 01/17/18 20:07 01/17/18 22:02 Temperature 99.1 F Pulse Rate 95 H 98 H Respiratory Rate 18 Blood Pressure 105/76 Pulse Oximetry 95 97 01/18/18 00:00 01/18/18 00:04 01/18/18 04:00 Temperature 98.5 F 98.3 F Pulse Rate 84 103 H 77 Respiratory Rate 18 18 Blood Pressure 102/55 L 102/55 L Pulse Oximetry 95 94 L 01/18/18 07:32 01/18/18 07:53 01/18/18 12:06 Temperature 98.5 F 98.2 F Pulse Rate 90 87 82 Respiratory Rate 20 18 Blood Pressure 105/74 127/74 Pulse Oximetry 99 98 Intake & Output 01/17/18 01/18/18 01/18/18 18:59 06:59 18:59 Intake Total 1253 / 1253 240 / 240 Output Total 1200 / 1200 1300 / 1300 Balance 53 / 53 -1060 / -1060 Weight 99 kg Intake: IV 200 / 200 NS Inj 500 ML @ Wide Open IV. 200 / 200 SIG BOLUS ONE Rx#:[id number] Oral 800 / 800 240 / 240 Intake (Blood Product) Amt 253 / 253 Plt Pheresis Leukored/ Irr 253 / 253 Unit [id number] Output: Urine 1200 / 1200 1300 / 1300 Other: Date of Last Bowel Movement 01/15/18 01/17/18 01/17/18 # Bowel Movements 1 Result Diagrams: 01/18/18 06:13 01/18/18 06:13 Laboratory Results: Laboratory Results - last 24 hr 01/18/18 01/18/18 06:13 06:13 WBC 20.1 H RBC 3.08 L Hgb 9.4 L Hct 27.5 L MCV 89.3 MCH 30.4 MCHC 34.0 RDW 15.2 Plt Count 27 L D MPV 8.4 Prelim Diff (Auto) Manual diff required WBC Differential Manual diff final Seg Neuts % (Manual) 20 Band Neuts % (Manual) 3 Lymphocytes % (Manual) 42 Monocytes % (Manual) 3 Metamyelocytes % (Man) 2 H Blast Cells % (Manual) 30 H Abs Neuts (Manual) 5.0 Nucleated RBCs/100 WBC 3 H Differential Comment . Platelet Estimate Low L Platelet Morphology Normal Sodium 141 Potassium 3.9 D Chloride 103 Carbon Dioxide 27.5 Anion Gap 11 BUN 9 Creatinine 0.90 Estimated GFR 64 L Random Glucose 93 Uric Acid 7.8 H Calcium 9.3 Phosphorus 3.8 Magnesium 1.9 Medications: Active Medications Generic Name Dose Route Start Last Admin Trade Name Freq PRN Reason Stop Dose Admin Acetaminophen 650 mg 01/15/18 16:15 01/17/18 10:22 Tylenol PO 650 mg Q4H PRN Administration Temp > 100.4 Allopurinol 300 mg 01/15/18 19:30 01/18/18 08:01 Zyloprim PO 300 mg DAILY LEXA Administration Atorvastatin Calcium 10 mg 01/16/18 21:00 01/17/18 20:20 Lipitor PO 10 mg HS LEXA Administration Carvedilol 6.25 mg 01/17/18 12:39 01/18/18 08:01 Coreg PO 6.25 mg BID LEXA Administration Diphenhydramine HCl 25 mg 01/17/18 09:08 01/17/18 10:23 Benadryl PO 25 mg Q4H PRN Administration SEE LABEL COMMENTS Famotidine 20 mg 01/16/18 21:00 01/18/18 08:01 Pepcid PO 20 mg BID LEXA Administration Fluticasone Propionate 1 spray 01/15/18 17:35 01/18/18 08:11 Flonase Nasal [place] EACH NARE 1 spray DAILY PRN Administration SEE LABEL COMMENTS Gabapentin 200 mg 01/17/18 21:00 01/17/18 20:20 Neurontin PO 200 mg HS LEXA Administration Levothyroxine Sodium 25 mcg 01/16/18 06:00 01/18/18 05:13 Synthroid PO 25 mcg DAILY@0600 LEXA Administration Lisinopril 5 mg 01/16/18 09:00 01/17/18 09:38 Prinivil PO 5 mg DAILY LEXA Administration Loratadine 5 mg 01/18/18 08:15 01/18/18 08:11 Claritin PO 5 mg DAILY LEXA Administration Lorazepam 0.5 mg 01/15/18 17:35 01/18/18 08:14 Ativan PO 0.5 mg DAILY PRN Administration Anxiety Metoclopramide HCl 5 mg 01/15/18 16:15 01/16/18 11:23 Reglan Inj IV.PUSH 5 mg Q6HR PRN Administration NAUSEA OR VOMITING Protocol Multivitamins 1 tab 01/16/18 09:00 01/18/18 08:01 Theragran PO 1 tab DAILY LEXA Administration Senna/Docusate Sodium 1 tab 01/15/18 21:00 01/18/18 08:02 Nataliia-Colace PO 1 tab BID LEXA Administration Sodium Chloride 2 ml 01/15/18 14:25 01/16/18 08:40 Ns Flush IV.FLUSH 2 ml PRN PRN Administration FLUSH AFTER USING IV ACCESS Tramadol HCl 50 mg 01/16/18 09:45 01/16/18 10:45 Ultram PO 50 mg Q6H PRN Administration PAIN SCALE 1 TO 10 Vitamin D 5,000 unit 01/16/18 09:00 01/18/18 08:01 Vitamin D3 PO 5,000 unit DAILY LEXA Administration Objective Remarks: GENERAL: Overweight older female sitting up in bed. In no acute distress. SKIN: Warm and dry. HEAD: Normocephalic. EYES: No scleral icterus. No injection or drainage. NECK: Supple, trachea midline. CARDIOVASCULAR: Regular rate and rhythm without murmurs. RESPIRATORY: Breath sounds clear, equal bilaterally. Unlabored with no accessory muscle use. GASTROINTESTINAL: Abdomen soft, non-tender, nondistended. EXTREMITIES: No cyanosis, or edema. MUSCULOSKELETAL: Adequate muscle tone. NEUROLOGICAL: No obvious focal deficit. Awake, alert, and oriented x3. Assessment/Plan - Plan 62-year-old female admitted from [facility] with new diagnosis of acute lymphoblastic leukemia 1. Echocardiogram shows EF of 60-65%. This is improved as patient reports her previous echo was around 35%. 2. Anticipate transfer to [facility] on Thursday or Thursday. Dr Adiel Ness to be accepting physician. Case management arranging transfer, patient assigned bed today. 3. Bone marrow biopsy was canceled. The patient requests to have it done upon transfer at . 4. No transfusions warranted today. We will continue to monitor. 5. Monitor daily CBC, BMP, uric acid, mag, phos. 6. Continue supportive care. - Attending Statement The exam, history, and the medical decision-making described in the above note were completed with the assistance of the mid-level provider. I reviewed and agree with the findings presented. I attest that I had a [id number] encounter with the patient on the same day, and personally performed and documented my assessment and findings in the medical record.Pt has sinus congestion. Remains afebrile. No bleeding noted. CBC stable. Await transfer to [facility] once approved by insurance and when a bed is available.
--- NOTE | 2018-01-18 14:11 | P.DS ---
Date of admission: 01/15/18 16:09 Primary care physician: No Primary Care Physician Brief History from admission: The patient is a 62-year-old female with past medical history of ITP and CHF who is presenting to the hospital upon request of her oncologist. The patient states that she has been following with Dr. Lazcano and she saw him in the office today and she recommended that she come to the hospital for further evaluation and treatment. The patient says that recently she has been tired, short of breath and has had decreased appetite. She believes she might of had some weight loss but nothing significant. She says lately when she eats the food goes right through her and she has diarrhea. She denies any fevers, she denies any edema. She denies any chest pain. She says on November 25 she had chest pain and went to the hospital and was found to have blood clots in her lungs. She says they have been found her to have abnormal blood counts and was not started on anticoagulation because she was told her blood was thin enough and her body would take care of the blood clots. The patient says she was currently being worked up between a chronic and acute type of cancer. DS: Summary Hospital Course: Clinical data discharge Patient is in bed she feels tired. Complains of sinus headaches says Claritin helps. No fever or chills. No nausea vomiting diarrhea constipation. Has a bed at [facility]. Plan to transfer today Physical exam: GENERAL: Pleasant 62 yo F, well-developed well-nourished, in no acute distress. CARDIOVASCULAR: Regular rate and rhythm. No murmur appreciated. RESPIRATORY: No accessory muscle use. Clear to auscultation. Breath sounds equal bilaterally. GASTROINTESTINAL: Abdomen soft, non-tender, nondistended. MUSCULOSKELETAL: No obvious deformities. No clubbing. No cyanosis. No edema. NEUROLOGICAL: Awake and alert. No obvious cranial nerve deficits. Motor grossly within normal limits. Normal speech. Assessment and Plan ALL/ ITP The pt was being worked up by Dr. 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 PLT count is currently 17. The pt also has a history of ITP. She has not had any recent bleeding. - oncology consult placed. - follow CBC and transfuse per oncology. - hold ASA. PE Recently diagnosed. Not on anticoagulation 2/2 thrombocytopenia. She denies any chest pain. - oxygen and nebs as needed. - incentive spirometry. Fatigue/ Dizziness S/t above. - PT if needed. Pt is ambulatory at this time. low BP SBP in 80s. adjust BP meds. Decreased carvedilol, DC HCTZ contiue lisinopril, parameters to hols BP if SBP< 110 . CHF Chronic, systolic. S/p AICD placement. Pt appears euvolemic. - resume home regimen. HTN Blood pressure relatively controlled at this time. - resume home regimen. - clonidine as needed. PPx: Contraindicated 2/2 thrombocytopenia Patient is transferred to [facility] for further evaluation and treatment. - Time Spent with Patient Total time spent providing and/or coordinating discharge services: - Quality: VTE Deep Vein Thrombosis/Pulmonary Embolism Present on Admission: No Exam Vital signs: Vital Signs 01/17/18 16:00 01/17/18 16:34 01/17/18 20:00 Temperature 98.6 F 99.1 F Pulse Rate 75 90 95 H Respiratory Rate 20 18 Blood Pressure 127/82 105/76 Pulse Oximetry 97 95 01/17/18 20:07 01/17/18 22:02 01/18/18 00:00 Temperature 98.5 F Pulse Rate 98 H 84 Respiratory Rate 18 Blood Pressure 102/55 L Pulse Oximetry 97 95 01/18/18 00:04 01/18/18 04:00 01/18/18 07:32 Temperature 98.3 F Pulse Rate 103 H 77 90 Respiratory Rate 18 Blood Pressure 102/55 L Pulse Oximetry 94 L 01/18/18 07:53 01/18/18 12:06 Temperature 98.5 F 98.2 F Pulse Rate 87 82 Respiratory Rate 20 18 Blood Pressure 105/74 127/74 Pulse Oximetry 99 98 Intake & Output 01/17/18 01/18/18 01/18/18 18:59 06:59 18:59 Intake Total 1253 / 1253 240 / 240 Output Total 1200 / 1200 1300 / 1300 Balance 53 / 53 -1060 / -1060 Weight 99 kg Intake: IV 200 / 200 NS Inj 500 ML @ Wide Open IV. 200 / 200 SIG BOLUS ONE Rx#:[id number] Oral 800 / 800 240 / 240 Intake (Blood Product) Amt 253 / 253 Plt Pheresis Leukored/ Irr 253 / 253 Unit [id number] Output: Urine 1200 / 1200 1300 / 1300 Other: Date of Last Bowel Movement 01/15/18 01/17/18 01/17/18 # Bowel Movements 1 Results Procedures completed during hospitalization: No procedures Labs on day of discharge: Labs from last 24 hours 01/18/18 01/18/18 06:13 06:13 WBC 20.1 H RBC 3.08 L Hgb 9.4 L Hct 27.5 L MCV 89.3 MCH 30.4 MCHC 34.0 RDW 15.2 Plt Count 27 L D MPV 8.4 Prelim Diff (Auto) Manual diff required WBC Differential Manual diff final Seg Neuts % (Manual) 20 Band Neuts % (Manual) 3 Lymphocytes % (Manual) 42 Monocytes % (Manual) 3 Metamyelocytes % (Man) 2 H Blast Cells % (Manual) 30 H Abs Neuts (Manual) 5.0 Nucleated RBCs/100 WBC 3 H Differential Comment . Platelet Estimate Low L Platelet Morphology Normal Sodium 141 Potassium 3.9 D Chloride 103 Carbon Dioxide 27.5 Anion Gap 11 BUN 9 Creatinine 0.90 Estimated GFR 64 L Random Glucose 93 Uric Acid 7.8 H Calcium 9.3 Phosphorus 3.8 Magnesium 1.9 Discharge Plan - Discharge Disposition Patient Disposition: 70 Transfer To Other Facility - Discharge Condition Condition: Stable - Discharge Order Discharge Orders: Discharge Order (Routine); Ordered 01/18/18 Ordered By: Monisha Curry - Discharge Details Anticipated Discharge Date: 01/18/18 - Physicians Team Primary Care Provider: Primary Care Ginna Menchaca Attending Provider: Monisha Curry Other Providers: Kvng Lazcano MD
== END 2018-01-18 15:15 | disposition short-term general hospital (02) ==
LOC: NEPC 12:48 → NEDA 16:09 → HCIN 16:54
PROVIDERS: ADMIT Hospitalist; ATTEND Hospitalist